=== PATIENT | female | born 1940 | race Caucasian/White ===

== ENCOUNTER 2018-01-12 14:33 | Emergency (ER) | payer MEDICARE ==
--- NOTE | 2018-01-12 15:36 | RAD ---
LEFT FOOT THREE VIEW 01/12/18 HISTORY: Foot pain. Emergency exam. Charcot arthropathy. COMPARISON: None. FINDINGS: There is a large soft tissue ulcer along the medial aspect of the great toe metatarsophalangeal joint . There is some erosions of the metatarsal head medially. Chronic erosions of the distal phalanx of the great toe with ankylosis of the interphalangeal joint. 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 There is near complete erosion of prior osteotomy of the calcaneu s. There is midfoot degenerative destruction, subluxation and debris. Large body is present at the anter ior tibiotalar joint. IMPRESSION: 1. Large soft tissue ulcer on the medial aspect of the great toe metatarsophalangeal joint with underlying erosions can be seen with osteomyelitis. MRI may be helpful if clinically warranted. 2. 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 POS: [facility]
== END 2018-01-12 15:44 | disposition home or self-care (01) ==
LOC: BURERS 14:33
DX: L97.529 Non-pressure chronic ulcer of other part of left foot with unspecified severity (principal); D64.9 Anemia, unspecified; G62.9 Polyneuropathy, unspecified; F17.210 Nicotine dependence, cigarettes, uncomplicated; Z79.899 Other long term (current) drug therapy

== ENCOUNTER 2021-07-13 10:41 | Emergency (ER) | payer MEDICARE ==
[2021-07-13] MEDS ORDERED: Ketorolac Tromethamine 30 MG/ML VIAL ONE (10:59)
== END 2021-07-13 12:04 | disposition home or self-care (01) ==
LOC: BURERS 10:41
DX: M77.8 Other enthesopathies, not elsewhere classified (principal); D64.9 Anemia, unspecified; F17.210 Nicotine dependence, cigarettes, uncomplicated; I25.10 Atherosclerotic heart disease of native coronary artery without angina pectoris
CPT/HCPCS: 96372; J1885